=== PATIENT | female | born 2000 | race Caucasian/White ===

== ENCOUNTER 2024-11-25 09:20 | Outpatient (REF) | payer OTHER, SELFPAY ==
[2024-11-25 13:23] LABS: Appearance Urine Clear; Glucose Urine UA Negative (Negative); PH 6.5 (5.0-9.0); Specific Gravity - Urine 1.020 (1.005-1.025); UMIC TRIGGER UACC YES
[2024-11-25 13:36] LABS: MANUAL DIFF FLAG NO; UACC Culture Trigger YES
[2024-11-25 13:43] LABS: Hematocrit 39.7 % (37.0-47.0); Hemoglobin 13.3 g/dl (12.0-16.0); Imm Gran Abs Auto 0.02 X10*3/uL (0.00-0.03); Imm Gran Pct Auto 0.3 % (0.0-0.4); Lymphocytes Absolute Auto 1.8 X10*3/uL (1.2-4.9); Mean Corpuscular HGB Conc 33.5 g/dl (31.0-35.0); Mean Corpuscular Hemoglobin 30.0 pg (27.0-33.0); Mean Corpuscular Volume 89.4 fL (80.0-98.0); NRBC Abs Auto 0.000 X10*3/uL (0.0-0.012); NRBC Pct Auto 0.0 /100WBC (0.0-0.2); Platelet Count 282 X10*3/uL (160-400); Red Blood Count 4.44 X10*6/uL (4.20-5.50); White Blood Count 7.1 X10*3/uL (4.8-10.8)
[2024-11-25 13:52] LABS: Alanine Aminotransferase 23 U/L (0-31); Albumin Level 4.6 g/dL (3.5-5.0); Alkaline Phosphatase 93 U/L (39-117); Anion Gap 10 (12-20); Aspartate Amino Transferase 25 U/L (5-31); Blood Urea Nitrogen 17 mg/dL (9-16); Calcium 9.3 mg/dL (8.4-10.2); Carbon Dioxide 26 mmol/L (22-29); Chloride 107 mmol/L (96-108); Cholesterol 166 mg/dL (<200); Estimated Glomerular Filt Rate > 60; HDL Cholesterol 55 mg/dL (>40); Potassium 4.4 mmol/L (3.3-5.1); Sodium 139 mmol/L (135-145); Total Protein 7.8 g/dL (6.5-8.0); Triglycerides 53 mg/dL (<150)
[2024-11-25 14:24] LABS: Folate 8.7 ng/mL (> or = 4.0); Vitamin B12 662 pg/mL (200-900)
[2024-11-26 04:37] LABS: HBsAGNum1 0.30 S/CO (0.00-0.99); HIV Num 1 0.06 S/CO (0.00-0.99); Hepatitis B Surface Antigen Negative (Negative); ~HepC Num1 0.14 S/CO (0.00-0.79); ~Hepatitis B Surface Antibody REACTIVE (Nonreactive); ~Hepatitis C Antibody Nonreactive (Nonreactive)
[2024-11-30 17:03] LABS: VITAMIN D (1,25 OH) D3 56 pg/mL; Vit D (1,25-Dihydroxy) Total 56 pg/mL (18-72); Vitamin D (1,25 OH) D2 <8 pg/mL
== END 2024-11-25 09:21 | disposition home or self-care (01) ==
LOC: HO.HKASLDS 09:20
PROVIDERS: PCP Family Medicine; Visit Provider Student in an Organized Health Care Education/Training Program
DX: Z76.89 Persons encountering health services in other specified circumstances (principal); Z13.9 Encounter for screening, unspecified; Z13.6 Encounter for screening for cardiovascular disorders; Z13.1 Encounter for screening for diabetes mellitus; Z13.220 Encounter for screening for lipoid disorders; Z13.31 Encounter for screening for depression; Z11.4 Encounter for screening for human immunodeficiency virus [HIV]; Z11.3 Encounter for screening for infections with a predominantly sexual mode of transmission; Z71.9 Counseling, unspecified; M25.511 Pain in right shoulder; G89.29 Other chronic pain; M25.561 Pain in right knee; L68.0 Hirsutism; E28.2 Polycystic ovarian syndrome; L70.9 Acne, unspecified
CPT/HCPCS: 36415; 80053; 80061; 81001; 82607; 82627; 82652; 82746; 83036; 83498; 84146; 84402; 84403; 85025; 86706; 86803; 87086; 87340; 87389; 99202

== ENCOUNTER 2024-11-25 09:20 | Outpatient (AMB) | payer OTHER, SELFPAY ==
--- NOTE | 2024-11-25 09:24 | A.OFFPC_ITS ---
Vital Signs 11/25/24 09:26 Height 5 ft 5.94 in Weight 139 lb 2 oz BMI 22.5 BP 116/70 Blood Pressure Location Lt brachial Position Sitting Respiration 16 Pulse 78 Pulse Source Pulse Oximeter Temp 98.1 F Temp Source Oral Pulse Oximetry (%) 99 Oxygen Delivery Method Room Air Intake Visit Reasons: [employer] Ruptured Ovarian Cyst f/u Intake Note: establish care. 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: No Accompanied by: Self / Same As Patient Allergies No Known Allergies Allergy (Verified 11/25/24 09:24) Tobacco use date assessed: 11/25/24 Dental Screening Dental Screen Date: 11/25/24 Did you have a dental visit in the last 12 months?: Yes Did you have a dental problem in the last 6 months where you did not have access to dental care?: No Was dental information given to patient?: Patient has dentist HPI HPI Comments History of Present Illness Details History of Present Illness The patient is a 24-year-old female presenting with follow-up for a suspected ruptured ovarian cyst and management of chronic musculoskeletal pain. Ruptured ovarian cyst: - The patient experienced a suspected ru ptured ovarian cyst at the end of September, characterized by four days of abdominal pain and dark bleeding, which was initially mistaken for menstruation. - An emergency room visit confirmed the presence of a cyst on the right ovary through ultrasound imaging. - Since the event, the patient reports o ccasional right-sided pelvic pain but no abnormal bleeding. Chronic right shoulder pain: - The patient reports chronic right shou lder pain that began while stationed in [place], exacerbated by physical activity such as bench pressing. - Physical therapy was previously attemp yuniel without imaging, and the pain persists, particularly with certain movements. Chronic right knee pain: - The patient experiences chronic right knee pain, which is noticeable even when standing still and worsens with use. - There is a history of physical therapy for the knee in the past, but the pain has returned. Chronic right hip pain: - The patient reports chronic right hip pain, described as a persistent tightness that worsens with stress. - The pain is noted to be more pronounce d during driving, which is a frequent activity for the patient. Acne: - The patient has a history of acne, pre viously treated with clindamycin and benzoyl peroxide, with varying success. - Family history includes similar issues in siblings and mother. Hirsutism: - The patient reports the presence of co arse chin hairs, which have increased over time. Polycystic Ovary Syndrome (PCOS): - The patient exhibits symptoms consiste nt with PCOS, including acne, hirsutism, and ovarian cysts. Review of Systems - Gastrointestinal: Denies nausea, vomit ing, or diarrhea. - Musculoskeletal: Reports chronic pain in right shoulder, knee, and hip. Denies any recent trauma. - Genitourinary: Reports occasional righ t-sided pelvic pain. Denies abnormal bleeding. - Dermatological: Reports acne and hirsu tism. 10-point ROS reviewed and negative excep t as noted in HPI Past Medical History - History of benign osteochondroma surge ry in [id number]. Health Maintenance - Pap smear recommended due to last scre ening being over three years ago. - STI screening offered and accepted. - Skin cancer check discussed due to fam mario history of skin cancer. Physical Exam General: Well-appearing, in no acute distress. Vital signs: Within normal limits. HEENT: Normocephalic, atraumatic. PERRLA, EOMI. Conjunctiva clear, sclera anicteric. Oropharynx clear, mucous membranes moist. TMs intact bilaterally. Neck: Supple, no lymphadenopathy, no thyromegaly, no JVD or carotid bruits. Cardiovascular: RRR, normal S1/S2, no murmurs, rubs, or gallops. Peripheral pulses 2+ and symmetric. No edema. Respiratory: Lungs clear to auscultation bilaterally, no wheezes, rales, or rhonchi. Normal effort. Abdomen: Soft, non-tender, non-distended. Normoactive bowel sounds. No hepatosplenomegaly, no masses. History of ruptured right ovarian cyst in September, still complains of pain in right and left lower pelvis. MSK: Full range of motion, no joint swelling or deformity. Normal gait. Complains of chronic right shoulder pain, right knee pain, right hip tightness, and upper right back pain. Skin: Warm, dry, intact. No rashes, lesions, or pallor. Acne present, concerns about skin cancer due to family history. Neuro: Alert and oriented x3. Cranial nerves II-XII intact. Strength 5/5 throughout. Sensation intact. Reflexes 2+ symmetric. Normal coordination and gait. Psych: Appropriate mood and affect. Normal judgment and insight. Plan 1. Ruptured Ovarian Cyst - Follow-up ultrasound planned to assess the ovarian cyst. 2. Chronic Right Shoulder Pain - X-ray ordered to evaluate shoulder con dition; ibuprofen and heating pad recommended for pain management. 3. Chronic Right Knee Pain - X-ray ordered to assess knee condition . 4. Chronic Right Hip Pain - Physical therapy considered if symptom s persist, though previous attempts were not beneficial. 5. Acne - Doxycycline prescribed for three month s; benzoyl peroxide for topical use. 6. Hirsutism - Further evaluation planned with lab te sts due to potential PCOS link. 7. Polycystic Ovary Syndrome (Pcos) - Lab tests planned to confirm diagnosis ; control considered as treatment option. Discussion Notes During the consultation, I discussed the potential diagnosis of PCOS with the patient, explaining the symptoms and the need for laboratory confirmation. We talked about the management of her chronic musculoskeletal pain, including the use of NSAIDs and physical therapy. I also addressed her concerns about acne and hirsutism, suggesting doxycycline and benzoyl peroxide as treatment options. We reviewed the importance of follow-up imaging for her ovarian cyst and the need for preventative screenings such as a Pap smear and STI testing. I emphasized the importance of documenting her symptoms and treatments, especially given her service, to ensure appropriate care and compensation in the future. Patient was informed and verbally consented to the use of an ambient scribe for clinic note documentation during this visit. Patient Instructions - Take ibuprofen 800 mg with food as nee ded for pain, up to every 8 hours. - Use a heating pad on painful areas to help alleviate discomfort. - Take doxycycline as prescribed for acn e treatment, and use benzoyl peroxide topically. - Schedule follow-up ultrasound for ovar allie cyst evaluation. - Consider scheduling a Pap smear and ST I screening. - Keep a journal of symptoms and treatme nts to track what helps or worsens your condition. [facility] Medical History (Updated 11/25/24 @ 10:06 by Celio White MD) Acne Familial hirsutism Ovarian cyst Chronic right shoulder pain Chronic pain of right knee Family History Father No problems noted. Mother No problems noted. Social History Housing: Apartment Alcohol intake: current Alcohol intake frequency: does not drink Patient Tobacco Use Status: Never used Tobacco service: Yes Current occupational status: employed Cognitive needs: No Hearing needs: No Vision needs: Yes (rx glasses) Questionnaire PHQ-9 Over the last 2 weeks, how often have you been bothered by any of the following problems? 1. Little interest or pleasure in doing things: not at all 2. Feeling down, depressed, or hopeless: not at all 3. Trouble falling or staying asleep, or sleeping too much: not at all 4. Feeling tired or having little energy: several days 5. Poor appetite or overeating: not at all 6. Feeling bad about yourself - or that you are a failure or have let yourself or your family down: not at all 7. Trouble concentrating on things, such as reading the newspaper or watching television: not at all 8. Moving or speaking so slowly that other people could have noticed. Or the opposite - being so fidgety or restless that you have been moving around a lot more than usual: not at all 9. Thoughts that you would be better off or of hurting yourself in some way: not at all Total score: 1 Depression Screening Interpretation: Negative Depression Screening Done: Yes Source: Developed by Drs. Michael Mahoney, Ester Pillai, Cayden Best and colleagues, with an educational robert from [employer]. Thrive Questionnaire I am a: Patient What is your living situation today?: I have a steady place to live Within the past 12 months, did the food you bought not last and you didn't have the money to get more?: Never true Within the past 12 months, did you worry whether your food would run out before you got money to buy more?: Never true Do you have trouble paying for medicines?: No Do you have trouble getting transportation to medical appointments?: No Do you have trouble paying your heating and electricity bill?: No Do you have trouble taking care of your child, family member or friend?: No Are you currently unemployed and looking for a job?: No Are you interested in more education?: Yes Please select the resources that you would like help with: None Currently or been in a relationship where the following occur: No concerns reported THRIVE Score: 0 AUDIT C Alcohol Use Questionnaire (AUDIT-C) 1. How often do you have a drink containing alcohol?: Never 3. How often do you have six or more drinks on one occasion?: Never Total Score: 0 Score Reviewed/Action Taken: No LIVAN-7 AMB Questionnaire LIVAN-7 Date LIVAN - 7 assessed: 11/25/24 Feeling nervous, anxious, or on edge: 0 = Not at all Not being able to stop or control worryin = Not at all Worrying too much about different things: 1 = Several days Trouble relaxin = Not at all Being so restless that it is hard to sit still: 0 = Not at all Becoming easily annoyed or irritable: 1 = Several days Feeling afraid as if something awful might happen: 0 = Not at all Total LIVAN-7 score (0-4 normal; 5-9 mild; 10-14 moderate; 15-21 severe): 2 Source: Developed by Drs. Michael Mahoney, Ester Pillai, Cayden Best and colleagues, with an educational robert from [employer]. Physical exam (Primary Care) Depression Screening Interpretation: Negative Currently or been in a relationship where the following occur: No concerns reported Coding Level of Care Code New Pt Level 3 (93304) Diagnoses Establishing care with new doctor, encounter for Z76. Encounter for screening, unspecified Z13.9 Counseling, unspecified Z71.9 Hypertension screen Z13.6 Screening for diabetes mellitus Z13.1 Screening for lipoid disorders Z13.220 Screening for depression Z13.31 Screening for HIV (human immunodeficiency virus) Z11.4 Routine screening for STI (sexually transmitted infection) Z11.3 Chronic pain of right knee M25.561; G89.29 Chronic right shoulder pain M25.511; G89.29 Ovarian cyst N83.209 Hirsutism L68.0 Acne L70.9 Assessment & Plan Assessment & Plan (1) Establishing care with new doctor, encounter for: Code(s): Z76.89 - Persons encountering health services in other specified circumstances (2) Encounter for screening, unspecified: Code(s): Z13.9 - Encounter for screening, unspecified (3) Counseling, unspecified: Code(s): Z71.9 - Counseling, unspecified (4) Hypertension screen: Code(s): Z13.6 - Encounter for screening for cardiovascular disorders (5) Screening for diabetes mellitus: Code(s): Z13.1 - Encounter for screening for diabetes mellitus (6) Screening for lipoid disorders: Code(s): Z13.220 - Encounter for screening for lipoid disorders (7) Screening for depression: Code(s): Z13.31 - Encounter for screening for depression (8) Screening for HIV (human immunodeficiency virus): Code(s): Z11.4 - Encounter for screening for human immunodeficiency virus [HIV] (9) Routine screening for STI (sexually transmitted infection): Code(s): Z11.3 - Encounter for screening for infections with a predominantly sexual mode of transmission (10) Chronic pain of right knee: Code(s): M25.561 - Pain in right knee; G89.29 - Other chronic pain Category: Medical (11) Chronic right shoulder pain: Code(s): M25.511 - Pain in right shoulder; G89.29 - Other chronic pain Category: Medical (12) Ovarian cyst: Code(s): N83.209 - Unspecified ovarian cyst, unspecified side Category: Medical (13) Hirsutism: Code(s): L68.0 - Hirsutism (14) Acne: Code(s): L70.9 - Acne, unspecified Category: Medical Plan Orders: Orders Comprehensive Met. Panel Today Z13.9 - Encounter for screening, unspecified, Z76.89 - Persons encountering health services in other specified circumstances Hemoglobin A1c Today Z13.9 - Encounter for screening, unspecified, Z76.89 - Persons encountering health services in other specified circumstances Hepatitis B Surface Antibody Today Z13.9 - Encounter for screening, unspecified, Z76.89 - Persons encountering health services in other specified circumstances Hepatitis C Antibody Today Z13.9 - Encounter for screening, unspecified, Z76.89 - Persons encountering health services in other specified circumstances HIV Ab/Ag Today Z13.9 - Encounter for screening, unspecified, Z76.89 - Persons encountering health services in other specified circumstances Vitamin D 1,25 dihydroxy Today Z13.9 - Encounter for screening, unspecified, Z76.89 - Persons encountering health services in other specified circumstances XR shoulder RT min 2V Today G89.29 - Other chronic pain, M25.511 - Pain in right shoulder XR knee RT 1V Today G89.29 - Other chronic pain, M25.561 - Pain in right knee US pelvic complete Today N83.209 - Unspecified ovarian cyst, unspecified side DHEA Sulfate Today E28.2 - Polycystic ovarian syndrome, L68.0 - Hirsutism, L70.9 - Acne, unspecified Complete Blood Count Auto Diff Today Z13.9 - Encounter for screening, unspecified, Z76.89 - Persons encountering health services in other specified circumstances Hepatitis B Surface Antigen Today Z13.9 - Encounter for screening, unspecified, Z76.89 - Persons encountering health services in other specified circumstances Lipid Panel Today Z13.9 - Encounter for screening, unspecified, Z76.89 - Persons encountering health services in other specified circumstances UA CC w/rflx Micro + Cult Today Z13.9 - Encounter for screening, unspecified, Z76.89 - Persons encountering health services in other specified circumstances Vitamin B12 and Folate Today Z13.9 - Encounter for screening, unspecified, Z76.89 - Persons encountering health services in other specified circumstances US transvaginal Today N83.209 - Unspecified ovarian cyst, unspecified side Testosterone, Free/Total Today E28.2 - Polycystic ovarian syndrome, L68.0 - Hirsutism, L70.9 - Acne, unspecified 17 Hydroxyprogesterone Today E28.2 - Polycystic ovarian syndrome, L68.0 - Hirsutism, L70.9 - Acne, unspecified Prolactin Today E28.2 - Polycystic ovarian syndrome, L68.0 - Hirsutism, L70.9 - Acne, unspecified Medications: New cyclobenzaprine 5 mg PO BEDTIME 14 tabs 0RF doxycycline hyclate 100 mg PO BID 14 tabs 0RF L70.9 - Acne, unspecified ibuprofen 800 mg PO Q8H 30 tabs 0RF benzoyl peroxide 2.5% 1 appl topical DAILY 60 grams 0RF L70.9 - Acne, unspecified
[2024-11-25 09:26] VITALS: BP 116/70; PULSE 78; RESP 16; TEMP 36.7; O2SAT 99; BMI 22.5
== END 2024-11-25 10:05 | disposition home or self-care (01) ==
LOC: HO.HMCFMS 09:21
PROVIDERS: PCP Student in an Organized Health Care Education/Training Program; Visit Provider Student in an Organized Health Care Education/Training Program
DX: G89.29 Other chronic pain (principal); M25.561 Pain in right knee; M25.511 Pain in right shoulder; R10.31 Right lower quadrant pain; R10.32 Left lower quadrant pain; L68.0 Hirsutism; L70.9 Acne, unspecified

== ENCOUNTER 2024-12-09 08:35 | Outpatient (AMB) | payer OTHER, SELFPAY ==
[2024-12-09 08:37] VITALS: BP 132/80; PULSE 83; RESP 16; TEMP 36.5; O2SAT 99; BMI 22.1
--- NOTE | 2024-12-09 08:37 | A.OFFPC_ITS ---
Vital Signs 12/09/24 08:37 Height 5 ft 5.94 in Weight 136 lb 8 oz BMI 22.1 BP 132/80 Blood Pressure Location Lt brachial Position Sitting Respiration 16 Pulse 83 Pulse Source Pulse Oximeter Temp 97.7 F Temp Source Oral Pulse Oximetry (%) 99 Oxygen Delivery Method Room Air Intake Visit Reasons: 2 wk f/u Intake Note: establish care. 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 Accompanied by: Self / Same As Patient Allergies No Known Allergies Allergy (Verified 12/09/24 08:40) Tobacco use date assessed: 11/25/24 Dental Screening Dental Screen Date: 11/25/24 Did you have a dental visit in the last 12 months?: Yes Did you have a dental problem in the last 6 months where you did not have access to dental care?: No Was dental information given to patient?: Patient has dentist HPI HPI Comments History of Present Illness Details History of Present Illness The patient is a 24-year-old female presenting with acne management, evaluation of hyperandrogenism, and musculoskeletal pain relief. Acne: - The patient has been prescribed doxycy gallegos for acne treatment and has completed a 2 week course of antibiotics without gastrointestinal side effects. - Benzoyl peroxide was recommended as an [id number] adjunct treatment. Hyperandrogenism: - The patient exhibits elevated DHEA sul fate levels, indicating hyperandrogenism, but lacks other symptoms of polycystic ovary syndrome such as menstrual irregularities. - control was discussed as a treat ment option, but the patient declined due to past experiences. Musculoskeletal Pain: - The patient reports persistent musculo skeletal pain, particularly in the upper back and right shoulder, which has not improved with muscle relaxants. - Physical therapy and deep tissue massa ge were discussed as potential interventions. Review of Systems - Dermatological: Reports acne. - Endocrine: Denies menstrual irregulari ties. - Musculoskeletal: Reports persistent up per back and right shoulder pain. 10-point ROS reviewed and negative excep t as noted in HPI Past Medical History Health Maintenance - Vitamin B12 and pelvic ultrasound were ordered for further evaluation. Physical Exam General: Well-appearing, in no acute distress. Vital signs: Within normal limits. HEENT: Normocephalic, atraumatic. PERRLA, EOMI. Conjunctiva clear, sclera anicteric. Oropharynx clear, mucous membranes moist. TMs intact bilaterally. Neck: Supple, no lymphadenopathy, no thyromegaly, no JVD or carotid bruits. Cardiovascular: RRR, normal S1/S2, no murmurs, rubs, or gallops. Peripheral pulses 2+ and symmetric. No edema. Respiratory: Lungs clear to auscultation bilaterally, no wheezes, rales, or rhonchi. Normal effort. Abdomen: Soft, non-tender, non-distended. Normoactive bowel sounds. No hepatosplenomegaly, no masses. MSK: Full range of motion, no joint swelling or deformity. Normal gait. Physical therapy recommended for right shoulder. Skin: Warm, dry, intact. No rashes, lesions, or pallor. Neuro: Alert and oriented x3. Cranial nerves II-XII intact. Strength 5/5 throughout. Sensation intact. Reflexes 2+ symmetric. Normal coordination and gait. Psych: Appropriate mood and affect. Normal judgment and insight. Plan 1. Acne - Continue doxycycline for three months and use benzoyl peroxide as an adjunct treatment. 2. Hyperandrogenism - Monitor androgen levels and consider b irth control if symptoms worsen, though the patient currently declines this option. 3. Musculoskeletal Pain - Initiate physical therapy for the righ t shoulder and consider deep tissue massage for upper back pain. Discussion Notes During the visit, we discussed the management of acne with doxycycline and benzoyl peroxide. We also reviewed the elevated DHEA sulfate levels and the potential use of control for hyperandrogenism, which the patient declined. Physical therapy and massage were considered for musculoskeletal pain. Follow-up labs and imaging were ordered to further evaluate the patient's condition. Patient was informed and verbally consented to the use of an ambient scribe for clinic note documentation during this visit. Patient Instructions - Continue taking doxycycline as prescri bed and use benzoyl peroxide for acne treatment. - Schedule and attend physical therapy s essions for shoulder pain. - Follow up on lab results and imaging a ppointments. Total time spent caring for the patient today was 30 minutes. This includes time spent before the visit reviewing the chart, time spent documenting, and time spent reviewing laboratory results, diagnostic imaging, medications, performing a medically necessary evaluation, counseling on diagnoses, care coordination. [facility] Medical History (Updated 11/25/24 @ 10:06 by Celio White MD) Acne Familial hirsutism Ovarian cyst Chronic right shoulder pain Chronic pain of right knee Family History Father No problems noted. Mother No problems noted. Social History Housing: Apartment Alcohol intake: current Alcohol intake frequency: does not drink Patient Tobacco Use Status: Never used Tobacco service: Yes Current occupational status: employed Cognitive needs: No Hearing needs: No Vision needs: Yes (rx glasses) Questionnaire PHQ-9 Over the last 2 weeks, how often have you been bothered by any of the following problems? 1. Little interest or pleasure in doing things: not at all 2. Feeling down, depressed, or hopeless: not at all 3. Trouble falling or staying asleep, or sleeping too much: not at all 4. Feeling tired or having little energy: several days 5. Poor appetite or overeating: not at all 6. Feeling bad about yourself - or that you are a failure or have let yourself or your family down: not at all 7. Trouble concentrating on things, such as reading the newspaper or watching television: not at all 8. Moving or speaking so slowly that other people could have noticed. Or the opposite - being so fidgety or restless that you have been moving around a lot more than usual: not at all 9. Thoughts that you would be better off or of hurting yourself in some way: not at all Total score: 1 Depression Screening Interpretation: Negative Depression Screening Done: Yes Source: Developed by Drs. Michael Mahoney, Ester Pillai, Cayden Best and colleagues, with an educational robert from [employer]. Thrive Questionnaire Date Thrive assessed: 11/25/24 I am a: Patient What is your living situation today?: I have a steady place to live Within the past 12 months, did the food you bought not last and you didn't have the money to get more?: Never true Within the past 12 months, did you worry whether your food would run out before you got money to buy more?: Never true Do you have trouble paying for medicines?: No Do you have trouble getting transportation to medical appointments?: No Do you have trouble paying your heating and electricity bill?: No Do you have trouble taking care of your child, family member or friend?: No Do you have trouble with day-to-day activities such as bathing, preparing meals, shopping, managing finances, etc.?: No Are you currently unemployed and looking for a job?: No Are you interested in more education?: Yes Please select the resources that you would like help with: None Currently or been in a relationship where the following occur: No concerns reported THRIVE Score: 0 AUDIT C Alcohol Use Questionnaire (AUDIT-C) 1. How often do you have a drink containing alcohol?: Never 2. How many drinks containing alcohol do you have on a typical day when you are drinking?: 1 or 2 3. How often do you have six or more drinks on one occasion?: Never Total Score: 0 Score Reviewed/Action Taken: No LIVAN-7 AMB Questionnaire LIVAN-7 Date LIVAN - 7 assessed: 11/25/24 Feeling nervous, anxious, or on edge: 0 = Not at all Not being able to stop or control worryin = Not at all Worrying too much about different things: 1 = Several days Trouble relaxin = Not at all Being so restless that it is hard to sit still: 0 = Not at all Becoming easily annoyed or irritable: 1 = Several days Feeling afraid as if something awful might happen: 0 = Not at all Total LIVAN-7 score (0-4 normal; 5-9 mild; 10-14 moderate; 15-21 severe): 2 Source: Developed by Drs. Michael Mahoney, Ester Pillai, Cayden Best and colleagues, with an educational robert from [employer]. Physical exam (Primary Care) Vital Signs: Last Vital Signs Temp 97.7 F 12/09/24 08:37 Pulse 83 12/09/24 08:37 Resp 16 12/09/24 08:37 BP 132/80 12/09/24 08:37 Pulse Ox 99 12/09/24 08:37 Oxygen Delivery Method Room Air 12/09/24 08:37 BMI result Body Mass Index 22.1 Tobacco/Smoking Status: Tobacco use Status Tobacco use date assessed 11/25/24 12/09/24 08:44 Patient Tobacco Use Status Never used Tobacco 12/09/24 08:44 PHQ-9: PHQ-9 Score PHQ-9: Total score 1 12/09/24 08:44 Depression Screening Interpretation: Negative Thrive Assessment: Date of Thrive Assessment Date Thrive assessed 11/25/24 12/09/24 08:44 Currently or been in a relationship where the following occur: No concerns reported Coding Level of Care Code Est Pt Level 4 (81608) Diagnoses Acne L70.9 Chronic right shoulder pain M25.511; G89.29 Hyperandrogenism E28.8 Musculoskeletal pain M79.18 Assessment & Plan Assessment & Plan (1) Acne: Code(s): L70.9 - Acne, unspecified Category: Medical (2) Chronic right shoulder pain: Code(s): M25.511 - Pain in right shoulder; G89.29 - Other chronic pain Category: Medical (3) Hyperandrogenism: Code(s): E28.8 - Other ovarian dysfunction (4) Musculoskeletal pain: Code(s): M79.18 - Myalgia, other site Plan Orders: Orders PT Evaluation and Treatment Today G89.29 - Other chronic pain, M25.511 - Pain in right shoulder Medications: Refilled doxycycline hyclate 100 mg PO BID 180 tabs 0RF L70.9 - Acne, unspecified
== END 2024-12-09 08:59 | disposition home or self-care (01) ==
LOC: HO.HMCFMS 08:36
PROVIDERS: PCP Student in an Organized Health Care Education/Training Program; Visit Provider Student in an Organized Health Care Education/Training Program
DX: L70.9 Acne, unspecified (principal); M25.511 Pain in right shoulder; G89.29 Other chronic pain; E28.8 Other ovarian dysfunction; M79.18 Myalgia, other site

== ENCOUNTER → 2024-12-09 08:35 | Outpatient (BNVA) | payer OTHER, SELFPAY | PROVIDERS: PCP Student in an Organized Health Care Education/Training Program; Visit Provider Student in an Organized Health Care Education/Training Program | DX: L70.9 Acne, unspecified (principal); M25.511 Pain in right shoulder; G89.29 Other chronic pain; E28.8 Other ovarian dysfunction; M79.18 Myalgia, other site; Z13.31 Encounter for screening for depression | CPT/HCPCS: 96127; 99212 ==

== ENCOUNTER 2025-01-04 15:31 | Outpatient (AMB) | payer OTHER, SELFPAY ==
--- NOTE | 2025-01-04 15:43 | MHC.PC.OV ---
Vital Signs 01/04/25 15:47 Height 5 ft 5.94 in Weight 136 lb 6 oz BMI 22.0 BP 134/71 Blood Pressure Location Lt brachial Position Sitting Respiration 18 Pulse 75 Pulse Source Monitor Temp 97.8 F Temp Source Oral Pulse Oximetry (%) 100 Oxygen Delivery Method Room Air Intake Visit Reasons: EP - R.Leg Numbness Intake Note: Right leg numbness, mostly lower leg and foot Accompanied by: Self / Same As Patient Allergies No Known Allergies Allergy (Verified 01/04/25 15:46) Tobacco use date assessed: 11/25/24 Dental Screening Dental Screen Date: 11/25/24 HPI HPI Comments History of Present Illness Details History of Present Illness The patient is a 24-year-old female presenting with right leg numbness. Paresthesia of right lower extremity: The patient reports a two-week history of a sensation in her right foot and lower leg as if it is partly asleep. She first noted the symptom after going for a walk, and it is more noticeable in the shower, where the sensation of water feels diminished compared to the left leg. She also reports associated intermittent twitching in her right calf and hamstring. She reports her knee feels fatter and the skin feels tighter. Past surgical history includes a removal of an osteochondroma on the right samaniego in 2014, which resulted in some localized sensitivity, but she states the current symptoms are different and affect the whole leg. Stress: The patient requested a referral to a therapist for general stress management and to cope with life changes. 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 She reports feeling overworked, tired of life, and socially isolated. Recent stressors include losing a pet, adopting a new cat with unexpected health issues that she decided to return, and a subsequent conflict with a neighbor, which has increased her distress. Unintentional weight loss: The patient reports an unintentional weight loss of 10 to 12 pounds over the last 2-3 months. She attributes this to irregular eating habits while on leave, such as skipping breakfast and only having two meals a day, and reports she is now trying to get back to a regular eating and exercise routine. 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 - Education: She holds a bachelor's degree in business management and is currently working on a master's degree in organizational leadership. 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 - Social Support: She reports feeling isolated and recently had a falling out with a neighbor, who was one of her only local friends. - Nutrition: The patient reports a recent unintentional weight loss of 10-12 lbs over 2-3 months, which she attributes to poor eating habits and skipping meals while on leave. - Exercise: She recently resumed walking for exercise after a period of inactivity. Past Medical History - History of osteochondroma on the right samaniego, surgically removed in 2014. - The patient denies any history of broken bones. Health Maintenance [facility] Medical History (Updated 11/25/24 @ 10:06 by Celio White MD) Acne Familial hirsutism Ovarian cyst Chronic right shoulder pain Chronic pain of right knee Family History Father No problems noted. Mother No problems noted. Social History Housing: Apartment Alcohol intake: current Alcohol intake frequency: does not drink Patient Tobacco Use Status: Never used Tobacco service: Yes Current occupational status: employed Cognitive needs: No Hearing needs: No Vision needs: Yes (rx glasses) Questionnaire Thrive Questionnaire Date Thrive assessed: 11/25/24 I am a: Patient What is your living situation today?: I have a steady place to live Within the past 12 months, did the food you bought not last and you didn't have the money to get more?: Never true Within the past 12 months, did you worry whether your food would run out before you got money to buy more?: Never true Do you have trouble paying for medicines?: No Do you have trouble getting transportation to medical appointments?: No Do you have trouble paying your heating and electricity bill?: No Do you have trouble taking care of your child, family member or friend?: No Do you have trouble with day-to-day activities such as bathing, preparing meals, shopping, managing finances, etc.?: No Are you currently unemployed and looking for a job?: No Are you interested in more education?: Yes Please select the resources that you would like help with: None Currently or been in a relationship where the following occur: No concerns reported THRIVE Score: 0 LIVAN-7 AMB Questionnaire LIVAN-7 Date LIVAN - 7 assessed: 11/25/24 Source: Developed by Drs. Michael Mahoney, Ester Pillai, Cayden Best and colleagues, with an educational robert from [employer]. Review of Systems Narrative Review of Systems - Neurological: Reports a two-week history of numbness and a partly asleep sensation in the right foot and lower leg. - She also reports intermittent twitching in the right calf and hamstring. - Musculoskeletal: Reports a subjective feeling of the right knee being fatter and the skin over the leg feeling tighter. - Constitutional: Reports fatigue, stating she is tired of life. - Reports unintentional weight loss of 10-12 pounds over the last 2-3 months. - Cardiovascular: Denies racing heart. - Respiratory: Denies difficulty breathing. - Psychiatric: Reports experiencing significant stress and requests a therapist for stress management. - She expresses feelings of sadness and being overwhelmed by recent life events. 10-point ROS reviewed and negative except as noted in HPI Physical exam (Primary Care) Vital Signs: Last Vital Signs Temp 97.8 F 01/04/25 15:47 Pulse 75 01/04/25 15:47 Resp 18 01/04/25 15:47 BP 134/71 01/04/25 15:47 Pulse Ox 100 01/04/25 15:47 Oxygen Delivery Method Room Air 01/04/25 15:47 BMI result Body Mass Index 22.0 Tobacco/Smoking Status: Tobacco use Status Tobacco use date assessed 11/25/24 01/04/25 15:46 Patient Tobacco Use Status Never used Tobacco 01/04/25 15:46 Thrive Assessment: Date of Thrive Assessment Date Thrive assessed 11/25/24 01/04/25 15:46 Currently or been in a relationship where the following occur: No concerns reported Narrative Physical Exam General: Well-appearing, in no acute distress. Vital signs: Within normal limits. HEENT: Normocephalic, atraumatic. PERRLA, EOMI. Conjunctiva clear, sclera anicteric. Oropharynx clear, mucous membranes moist. TMs intact bilaterally. Neck: Supple, no lymphadenopathy, no thyromegaly, no JVD or carotid bruits. Cardiovascular: RRR, normal S1/S2, no murmurs, rubs, or gallops. Peripheral pulses 2+ and symmetric. No edema. Respiratory: Lungs clear to auscultation bilaterally, no wheezes, rales, or rhonchi. Normal effort. Abdomen: Soft, non-tender, non-distended. Normoactive bowel sounds. No hepatosplenomegaly, no masses. MSK: Full range of motion, no joint swelling or deformity. Normal gait. Right leg with altered sensation, particularly in the foot and lower leg, described as numbness and twitching in the calf. No visible swelling or edema. Pulses are good. Skin: Warm, dry, intact. No rashes, lesions, or pallor. Neuro: Alert and oriented x3. Cranial nerves II-XII intact. Strength 5/5 throughout. Sensation intact except for decreased sensation in the right leg. Reflexes 2+ symmetric. Normal coordination and gait. Psych: Appropriate mood and affect. Normal judgment and insight. Referral to behavioral health for stress management and life changes. Coding Level of Care Code Est Pt Level 3 (47119) Diagnoses Paresthesia of right lower extremity R20.2 Stress F43.9 Assessment & Plan Assessment & Plan (1) Paresthesia of right lower extremity: Code(s): R20.2 - Paresthesia of skin (2) Stress: Code(s): F43.9 - Reaction to severe stress, unspecified Plan Consent Patient was informed and verbally consented to the use of an ambient scribe for clinic note documentation during this visit. Plan 1. Paresthesia Of Right Lower Extremity - The physical exam was benign with no swelling and good pulses, making a serious vascular issue unlikely. - Will proceed with watchful waiting. - The patient was advised to keep a journal to track symptoms, including timing, associated activities, what she was wearing, and a severity rating from 1 to 10. 2. Stress - Patient is experiencing significant life stressors and requested mental health support. - A referral to behavioral health for therapy was placed. - The patient was advised that the referral team will contact her and to call the office if she does not hear from them within one to two weeks. 3. Follow-Up On Physical Therapy Referral - The patient reported not having received a call regarding a previous physical therapy referral. - Staff was instructed to provide the patient with the direct numbers for the physical therapy clinic. Discussion Notes I discussed with the patient that her physical exam today was normal. I noted that her legs looked normal, with no swelling and good pulses, which is reassuring. Given these findings, I recommended we monitor her symptoms for now and advised her to keep a journal of her leg numbness, noting when it occurs, what she is doing, and the severity. We also had an extended discussion about the significant stress she is experiencing related to her career, social situation, and recent life events. I placed a referral to behavioral health for counseling as she requested and advised her to follow up with our office if she doesn't hear from them. Finally, I addressed her concern about a previous physical therapy referral and instructed my staff to provide her with the direct contact numbers. Patient Instructions - Keep a journal of your right leg symptoms. - In the journal, please note when you feel the numbness, what you are doing at the time, what you are wearing, and rate the feeling on a scale of 1 to 10. - I have put in a referral for you to see a therapist for stress management. - If you do not hear from them in a week or two, please call our office. - My staff will give you the phone number for the physical therapist. - Please come back to see me whenever you need to. Medical Decision Making The patient is a 24-year-old female presenting with a two-week history of right lower extremity paresthesia and twitching. The physical examination was unremarkable, revealing no swelling, good peripheral pulses, and grossly intact sensation, although the patient reported subjective differences. Given the benign exam and absence of red flag symptoms such as weakness, bowel/bladder changes, or signs of DVT (no swelling, no dyspnea), the likelihood of an acute, serious underlying pathology is low. The differential diagnosis includes peripheral nerve compression, potentially related to her boots, or a mild radiculopathy. The most appropriate initial approach is conservative management with observation. A symptom journal was recommended to better characterize the symptoms and identify potential triggers. 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 Given her emotional state and self-reported difficulties, a referral to behavioral health is clinically indicated for evaluation and therapy for a likely adjustment disorder or acute stress reaction. An outstanding administrative issue regarding a prior physical therapy referral was also addressed to ensure continuity of care. Total time spent caring for the patient today was 30 minutes. This includes time spent before the visit reviewing the chart, time spent documenting, and time spent reviewing laboratory results, diagnostic imaging, medications, performing a medically necessary evaluation, counseling on diagnoses, care coordination. Orders: Referrals Behavioral Health Referral F43.23 - Adjustment disorder with mixed anxiety and depressed mood
[2025-01-04 15:47] VITALS: BP 134/71; PULSE 75; RESP 18; TEMP 36.6; O2SAT 100; BMI 22.0
== END 2025-01-04 16:25 | disposition home or self-care (01) ==
LOC: HO.HMCFMS 15:32
PROVIDERS: PCP Family Medicine; Visit Provider Student in an Organized Health Care Education/Training Program
DX: R20.2 Paresthesia of skin (principal); F43.9 Reaction to severe stress, unspecified

== ENCOUNTER → 2025-01-04 15:31 | Outpatient (BNVA) | payer OTHER, SELFPAY | PROVIDERS: PCP Family Medicine; Visit Provider Student in an Organized Health Care Education/Training Program | DX: R20.2 Paresthesia of skin (principal); F43.23 Adjustment disorder with mixed anxiety and depressed mood; R63.4 Abnormal weight loss; Z68.22 Body mass index [BMI] 22.0-22.9, adult | CPT/HCPCS: 99212 ==

== ENCOUNTER 2025-01-19 14:57 | Outpatient (REF) | payer OTHER, SELFPAY ==
--- NOTE | ~2025-01-19 | US_ITS ---
EXAMINATION: US PELVIS CLINICAL INFORMATION: History of ruptured right ovarian cyst in September, persistent pain; COMPARISON: None available. TECHNIQUE: Ultrasound of the pelvis is performed using both transabdominal and transvaginal transducers along with Doppler. Transvaginal imaging is performed due to inadequate visualization transabdominally. FINDINGS: Uterus: The uterus is anteverted and measures 5.9 x 2.7 x 4.0 cm. The double wall endometrial thickness is 6 mm. The uterus is smooth in contour and has normal myometrial echogenicity. No visible fibroid. Adnexa: Both ovaries are visualized. There is normal color flow to the adnexa. There is no ovarian torsion. There is no pelvic ascites or fluid collection. Right ovary measures 2.5 x 1.4 x 2.2 cm. Left ovary measures 3.2 x 2.5 x 2.6 cm. There is a 2.1 cm mildly complex dominant follicle or other cyst requiring no further follow-up. US/US pelvic and transvaginal IMPRESSION: Unremarkable pelvic ultrasound. Electronically signed by: Emery Castañeda MD 01/19/2025 04:48 PM EST
== END 2025-01-19 14:58 | disposition home or self-care (01) ==
LOC: HO.HMGCX 14:57
PROVIDERS: PCP Family Medicine; Visit Provider Student in an Organized Health Care Education/Training Program
DX: N83.201 Unspecified ovarian cyst, right side (principal)
CPT/HCPCS: 76830; 76856

== ENCOUNTER → 2025-01-19 15:02 | Outpatient (BNV) | payer OTHER, SELFPAY | PROVIDERS: PCP Family Medicine; Visit Provider Radiology Diagnostic Radiology | DX: N83.02 Follicular cyst of left ovary (principal) | CPT/HCPCS: 76830; 76856 ==

== ENCOUNTER 2025-01-20 15:07 | Outpatient (AMB) | payer OTHER, SELFPAY ==
[2025-01-20 15:12] VITALS: BP 121/74; PULSE 91; RESP 16; TEMP 36.7; O2SAT 98; BMI 21.7
--- NOTE | 2025-01-20 15:12 | MHC.PC.OV ---
Vital Signs 01/20/25 15:12 Height 5 ft 5.94 in Weight 134 lb 8 oz BMI 21.7 BP 121/74 Blood Pressure Location Rt brachial Position Sitting Respiration 16 Pulse 91 Pulse Source Pulse Oximeter Temp 98.1 F Temp Source Oral Pulse Oximetry (%) 98 Oxygen Delivery Method Room Air Intake Visit Reasons: 2 wk f/u Allergies No Known Allergies Allergy (Verified 01/20/25 15:13) Tobacco use date assessed: 11/25/24 Dental Screening Dental Screen Date: 11/25/24 HPI HPI Comments History of Present Illness Details History of Present Illness The patient is a 24-year-old female presenting for a follow-up visit to review pelvic ultrasound results and discuss ongoing symptoms including leg numbness and stress. Anxiety and Stress: The patient reports significant stress but notes that the last couple of weeks have been much better due to lifestyle modifications. She has been eating three meals a day and engaging in gym exercise in the mornings, which she identifies as beneficial for her mental health. She has been attempting to schedule therapy and was placed on three different waitlists. Paresthesia of right lower extremity: The patient previously presented with numbness in the right lower leg. She reports the numbness has not worsened and may have improved, with less twitching, though her right foot still feels slightly different than the left. History of left ovarian cyst: The patient underwent a pelvic ultrasound yesterday which was found to be unremarkable. The findings noted a 2.1 cm mildly complex non-hemorrhagic adnexal cyst, which requires no further follow-up. Right shoulder pain: The patient reports a persistent feeling of imbalance in her right shoulder despite her ability to work it and pass her recent physical therapy test. She was referred to physical therapy but has not yet been contacted to schedule an appointment. Social History: - Exercise: The patient reports going to the gym in the mornings, which she finds helps manage her stress. - Nutrition: The patient reports she has been consistently eating three meals a day. - Occupation: The patient mentions being busy at work and recently taking a PT test. Family History: - The patient denies any known family medical history. Diagnostic Results: - Pelvic Ultrasound: Unremarkable. - A 2.1 cm mildly complex non-hemorrhagic adnexal cyst was noted, requiring no further follow-up. Past Medical History - History of left ovarian cyst, now resolved per recent ultrasound. - History of paresthesia and twitching in the right lower leg. - History of right shoulder imbalance. Health Maintenance - Engages in regular morning exercise at the gym for physical fitness and stress management. - Maintains a diet of three meals a day. - Referral provided for behavioral health services. - Referral provided for physical therapy for right shoulder. [facility] Medical History (Updated 01/22/25 @ 09:33 by Celio White MD) Anxiety Acne Familial hirsutism Ovarian cyst Chronic right shoulder pain Chronic pain of right knee Family History Father No problems noted. Mother No problems noted. Social History Housing: Apartment Alcohol intake: current Alcohol intake frequency: does not drink Patient Tobacco Use Status: Never used Tobacco service: Yes Current occupational status: employed Cognitive needs: No Hearing needs: No Vision needs: Yes (rx glasses) Questionnaire Thrive Questionnaire Date Thrive assessed: 11/25/24 I am a: Patient What is your living situation today?: I have a steady place to live Within the past 12 months, did the food you bought not last and you didn't have the money to get more?: Never true Within the past 12 months, did you worry whether your food would run out before you got money to buy more?: Never true Do you have trouble paying for medicines?: No Do you have trouble getting transportation to medical appointments?: No Do you have trouble paying your heating and electricity bill?: No Do you have trouble taking care of your child, family member or friend?: No Do you have trouble with day-to-day activities such as bathing, preparing meals, shopping, managing finances, etc.?: No Are you currently unemployed and looking for a job?: No Are you interested in more education?: Yes Please select the resources that you would like help with: None Currently or been in a relationship where the following occur: No concerns reported THRIVE Score: 0 LIVAN-7 AMB Questionnaire LIVAN-7 Date LIVAN - 7 assessed: 11/25/24 Source: Developed by Drs. Michael Mahoney, Ester Pillai, Cayden Best and colleagues, with an educational robert from [employer] Review of Systems Narrative Review of Systems - Neurological: Reports her right foot feels a little bit differently. - Reports improvement in right lower leg numbness with less muscle twitching. - Musculoskeletal: Reports a persistent imbalance in her right shoulder. - Psychiatric: Reports feeling very stressed on the day of the visit but notes overall improvement in the prior two weeks. 10-point ROS reviewed and negative except as noted in HPI Physical exam (Primary Care) Vital Signs: Last Vital Signs Temp 98.1 F 01/20/25 15:12 Pulse 91 01/20/25 15:12 Resp 16 01/20/25 15:12 BP 121/74 01/20/25 15:12 Pulse Ox 98 01/20/25 15:12 Oxygen Delivery Method Room Air 01/20/25 15:12 BMI result Body Mass Index 21.7 Tobacco/Smoking Status: Tobacco use Status Tobacco use date assessed 11/25/24 01/20/25 15:17 Patient Tobacco Use Status Never used Tobacco 01/20/25 15:17 Thrive Assessment: Date of Thrive Assessment Date Thrive assessed 11/25/24 01/20/25 15:17 Currently or been in a relationship where the following occur: No concerns reported Narrative Physical Exam General: Well-appearing, in no acute distress. Vital signs: Within normal limits. HEENT: Normocephalic, atraumatic. PERRLA, EOMI. Conjunctiva clear, sclera anicteric. Oropharynx clear, mucous membranes moist. TMs intact bilaterally. Neck: Supple, no lymphadenopathy, no thyromegaly, no JVD or carotid bruits. Cardiovascular: RRR, normal S1/S2, no murmurs, rubs, or gallops. Peripheral pulses 2+ and symmetric. No edema. Respiratory: Lungs clear to auscultation bilaterally, no wheezes, rales, or rhonchi. Normal effort. Abdomen: Soft, non-tender, non-distended. Normoactive bowel sounds. No hepatosplenomegaly, no masses. MSK: Full range of motion, no joint swelling or deformity. Normal gait. Right shoulder with some imbalance noted, patient reports ongoing physical therapy. Skin: Warm, dry, intact. No rashes, lesions, or pallor. Neuro: Alert and oriented x3. Cranial nerves II-XII intact. Strength 5/5 throughout. Sensation intact except for some numbness in the right lower leg and foot. Reflexes 2+ symmetric. Normal coordination and gait. Psych: Appropriate mood and affect. Normal judgment and insight. Reports stress but managing well with exercise and routine. Coding Level of Care Code Est Pt Level 3 (06761) Diagnoses Anxiety F41.9 Chronic right shoulder pain M25.511; G89.29 Stress F43.9 Paresthesia of right lower extremity R20.2 Assessment & Plan Assessment & Plan (1) Anxiety: Code(s): F41.9 - Anxiety disorder, unspecified Category: Medical (2) Chronic right shoulder pain: Code(s): M25.511 - Pain in right shoulder; G89.29 - Other chronic pain Category: Medical (3) Stress: Code(s): F43.9 - Reaction to severe stress, unspecified (4) Paresthesia of right lower extremity: Code(s): R20.2 - Paresthesia of skin Plan Consent Patient was informed and verbally consented to the use of an ambient scribe for clinic note documentation during this visit. Plan 1. Anxiety And Stress - Continue lifestyle modifications, including regular gym attendance and eating three meals a day, which the patient finds effective for stress management. - The patient was advised to contact [facility] directly to schedule a behavioral health appointment, as they accept her insurance and she may avoid a waitlist. - Patient was instructed to have the behavioral health provider send consultation notes to our office. - Plan to follow up at the end of February to review her progress with scheduling and attending behavioral health services. 2. Paresthesia Of Right Lower Extremity - The patient's symptoms of numbness have improved and twitching has lessened. - No active intervention is planned at this time; will continue to monitor symptoms. 3. Right Shoulder Pain - Patient reports a persistent feeling of imbalance in the right shoulder. - Advised the patient to proactively call physical therapy to schedule her appointment, as she has not yet been contacted. Discussion Notes I reviewed the patient's recent pelvic ultrasound, confirming the results were unremarkable and that the noted 2.1 cm cyst requires no further follow-up. We discussed her ongoing symptoms, noting improvement in her right leg numbness and the positive impact of diet and exercise on her stress levels. To address her difficulty in accessing mental health services, I provided her with direct contact information for [facility] [facility] after confirming they accept her insurance, and I instructed her to call them to expedite scheduling. I also advised her to follow up on her physical therapy referral for her right shoulder imbalance. We agreed to a follow-up visit at the end of February to assess her progress with these referrals. Patient Instructions - Your recent pelvic ultrasound was normal and shows a small cyst that does not need any further follow-up. - Continue going to the gym regularly, as this is helping with your stress. - Call [facility] at [phone] to schedule a therapy appointment, as they accept your insurance. - Please call your physical therapy office to schedule an appointment for your right shoulder. - When you see a therapist, ask them to send their notes to me. - Schedule a follow-up appointment to see me toward the end of February. Medical Decision Making The patient is a 24-year-old female presenting for follow-up. Her recent pelvic ultrasound was reassuringly normal, revealing a 2.1 cm mildly complex adnexal cyst that requires no further follow-up or intervention, resolving a point of previous concern. Her neurological symptoms in the right lower leg have stabilized and subjectively improved, warranting continued observation without further workup at this time. The patient's primary active issues relate to mental health and a musculoskeletal complaint. She has demonstrated good insight into the benefits of diet and exercise for stress management. A newton barrier to care has been difficulty accessing behavioral health services, which was addressed by providing a direct referral to [facility], a practice confirmed to accept her insurance, with the goal of expediting her connection to therapy. For her shoulder complaint, the onus is on the patient to actively follow up with the existing physical therapy referral. Follow-up is scheduled for late February to monitor progress on these action items. Total Time Statement 20 min Total time spent caring for the patient today includes pre-visit chart review, documentation, review of laboratory and diagnostic imaging results, medication reconciliation, medically necessary evaluation, counseling on diagnoses, care coordination, ordering appropriate tests and medications, review of tests performed by other providers, reporting test results to the patient, and communication with other healthcare providers.
== END 2025-01-20 15:29 | disposition home or self-care (01) ==
LOC: HO.HMCFMS 15:08
PROVIDERS: PCP Student in an Organized Health Care Education/Training Program; Visit Provider Student in an Organized Health Care Education/Training Program
DX: F41.9 Anxiety disorder, unspecified (principal); M25.511 Pain in right shoulder; G89.29 Other chronic pain; F43.9 Reaction to severe stress, unspecified; R20.2 Paresthesia of skin

== ENCOUNTER → 2025-01-20 15:07 | Outpatient (BNVA) | payer OTHER, SELFPAY | PROVIDERS: PCP Family Medicine; Visit Provider Student in an Organized Health Care Education/Training Program | DX: Z71.2 Person consulting for explanation of examination or test findings (principal); M25.511 Pain in right shoulder; G89.29 Other chronic pain; F41.9 Anxiety disorder, unspecified; F43.9 Reaction to severe stress, unspecified; R20.2 Paresthesia of skin; Z87.42 Personal history of other diseases of the female genital tract | CPT/HCPCS: 99212 ==